=== PATIENT | male | born 1935 | race Asian ===

== ENCOUNTER → 2017-01-17 | Outpatient (CLI) | payer OTHER | END | disposition home or self-care (01) | LOC: RD 10:39 | DX: M89.9 Disorder of bone, unspecified (principal) ==

== ENCOUNTER → 2017-02-10 | Outpatient (CLI) | payer OTHER | END | disposition home or self-care (01) | LOC: NM 08:56 | DX: Z95.2 Presence of prosthetic heart valve (principal) ==

== ENCOUNTER → 2017-04-15 | Outpatient (CLI) | payer OTHER | END | disposition home or self-care (01) | LOC: RD 10:25 | DX: M25.561 Pain in right knee (principal); M54.16 Radiculopathy, lumbar region ==

== ENCOUNTER 2018-01-11 18:06 | Emergency (ER) | payer OTHER ==
[~2018-01-11] VITALS: Ht 167.6 cm; Wt 89.5 kg
[2018-01-11 19:05] LABS: BASOPHIL % 0.5 % (0-2); PLATELET COUNT 171 x10^3mcL (130-400); RED CELL DISTRIBUTION WIDTH 14.2 % (11.5-14.5)
[2018-01-11 19:30] LABS: CALCIUM 8.3 mg/dL (8.5-10.1); CARBON DIOXIDE 30.3 mmol/L (21-32); CHLORIDE SERUM 95 mmol/L (98-107); CREATININE SERUM 1.1 mg/dL (0.7-1.3); GLUCOSE SERUM 105 mg/dL (74-106); POTASSIUM SERUM 3.5 mmol/L (3.5-5.1); SODIUM SERUM 133 mmol/L (136-145)
[2018-01-11 19:35] LABS: ALBUMIN 3.9 g/dL (3.4-5.0); ALKALINE PHOSPHATASE 68 U/L (46-116); ALT/SGPT 33 U/L (16-63); AST/SGOT 21 U/L (15-37); TOTAL PROTEIN, SERUM 7.3 g/dL (6.4-8.2)
[2018-01-11 21:05] VITALS: BP 149/98
== END 2018-01-11 21:05 | disposition home or self-care (01) ==
LOC: ED 18:06
PROVIDERS: Emergency Medicine
DX: S01.21XA Laceration without foreign body of nose, initial encounter (principal); S80.02XA Contusion of left knee, initial encounter; H92.02 Otalgia, left ear; I10 Essential (primary) hypertension; Z86.79 Personal history of other diseases of the circulatory system; Z79.01 Long term (current) use of anticoagulants; W01.0XXA Fall on same level from slipping, tripping and stumbling without subsequent striking against object, initial encounter; Y93.89 Activity, other specified; Y92.89 Other specified places as the place of occurrence of the external cause; Y99.8 Other external cause status
CPT/HCPCS: 36415

== ENCOUNTER 2018-01-24 12:29 | Inpatient (IN) | payer OTHER ==
[~2018-01-24] VITALS: Ht 170.2 cm; Wt 86.4 kg
[2018-01-24 14:19] LABS: BASOPHIL % 0.4 % (0-2); PLATELET COUNT 216 x10^3mcL (130-400)
[2018-01-24 14:20] LABS: RED CELL DISTRIBUTION WIDTH 14.6 % (11.5-14.5)
[2018-01-24 14:25] LABS: CALCIUM 8.4 mg/dL (8.5-10.1); CARBON DIOXIDE 30.8 mmol/L (21-32); CHLORIDE SERUM 98 mmol/L (98-107); CREATININE SERUM 1.1 mg/dL (0.7-1.3); GLUCOSE SERUM 92 mg/dL (74-106); POTASSIUM SERUM 3.9 mmol/L (3.5-5.1); SODIUM SERUM 135 mmol/L (136-145)
[2018-01-24] MEDS ORDERED: CORE25 PO (15:14)
[2018-01-24] MEDS ORDERED: ECOTRIN81 M2 PO (15:15)
[2018-01-24] MEDS ORDERED: ENALAPRIL MALEA10 MG PO (15:15)
[2018-01-24] MEDS ORDERED: K10 PO (15:16)
[2018-01-24] MEDS ORDERED: FELODIPINE10 MG PO (15:16)
[2018-01-24] MEDS ORDERED: SIMVASTATIN20 M1 PO (15:21)
[2018-01-24] MEDS ORDERED: COUMADIN3 MG PO (15:22)
[2018-01-24 15:47] LABS: T3 TOTAL 0.96 ng/mL
[2018-01-24 16:37] VITALS: BP 148/83
[2018-01-24 16:55] LABS: MAGNESIUM 2.2 mg/dL (1.8-2.4); PHOSPHOROUS 2.7 mg/dL (2.5-4.9)
[2018-01-24 17:04] LABS: CHOLESTEROL/HDL RATIO 2.5
[2018-01-24 17:11] LABS: FREE T4 1.45 ng/dL (0.76-1.46); FREE THYROXINE INDEX 3.7 ug/dL (1.4-4.5); T4(THYROXINE) 10.4 ug/dL (4.7-13.3)
[2018-01-24 20:57] LABS: UA SPECIFIC GRAVITY 1.015 (1.005-1.035); microscopic required? YES; urine erythrocyte 2+ (NEGATIVE)
[2018-01-24 21:38] VITALS: BP 155/78
[2018-01-24 22:51] LABS: AMPHETAMINE QUAL UR NONE DETECTED (NEG <=1000)
[2018-01-25 00:51] LABS: BASOPHIL % 0.6 % (0-2); PLATELET COUNT 236 x10^3mcL (130-400); RED CELL DISTRIBUTION WIDTH 14.5 % (11.5-14.5)
[2018-01-25 05:41] VITALS: BP 124/70
[2018-01-25 06:44] LABS: BASOPHIL % 0.5 % (0-2); PLATELET COUNT 205 x10^3mcL (130-400); RED CELL DISTRIBUTION WIDTH 14.5 % (11.5-14.5)
[2018-01-25 06:58] LABS: CARBON DIOXIDE 28.3 mmol/L (21-32); CHLORIDE SERUM 101 mmol/L (98-107); CREATININE SERUM 0.8 mg/dL (0.7-1.3); GLUCOSE SERUM 84 mg/dL (74-106); POTASSIUM SERUM 3.6 mmol/L (3.5-5.1); SODIUM SERUM 137 mmol/L (136-145)
[2018-01-25 09:03] VITALS: BP 162/86
[2018-01-25 10:39] LABS: ALKALINE PHOSPHATASE 77 U/L (46-116); ALT/SGPT 15 U/L (16-63); AST/SGOT 17 U/L (15-37)
[2018-01-25 12:04] VITALS: BP 135/75
[2018-01-25 17:23] VITALS: BP 158/78
[2018-01-25 22:13] VITALS: BP 132/75
[2018-01-26 05:15] VITALS: BP 137/66
[2018-01-26 06:11] LABS: BASOPHIL % 0.6 % (0-2); PLATELET COUNT 214 x10^3mcL (130-400)
[2018-01-26 06:24] LABS: CALCIUM 8.2 mg/dL (8.5-10.1); CARBON DIOXIDE 28.6 mmol/L (21-32); CHLORIDE SERUM 106 mmol/L (98-107); CREATININE SERUM 1.2 mg/dL (0.7-1.3); GLUCOSE SERUM 88 mg/dL (74-106); POTASSIUM SERUM 3.6 mmol/L (3.5-5.1); SODIUM SERUM 139 mmol/L (136-145)
[2018-01-26 06:46] LABS: RED CELL DISTRIBUTION WIDTH 14.6 % (11.5-14.5)
[2018-01-26 08:10] VITALS: BP 102/72
[2018-01-26 08:57] VITALS: BP 160/84
[2018-01-26 13:39] VITALS: BP 131/71
[2018-01-26 16:11] VITALS: BP 127/74
[2018-01-26 21:01] VITALS: BP 142/75
[2018-01-27 06:06] VITALS: BP 146/65
[2018-01-27 06:39] LABS: CALCIUM 8.3 mg/dL (8.5-10.1); CHLORIDE SERUM 106 mmol/L (98-107); CREATININE SERUM 1.2 mg/dL (0.7-1.3); GLUCOSE SERUM 90 mg/dL (74-106); POTASSIUM SERUM 3.8 mmol/L (3.5-5.1); SODIUM SERUM 142 mmol/L (136-145)
[2018-01-27 06:40] LABS: BASOPHIL % 0.3 % (0-2); PLATELET COUNT 220 x10^3mcL (130-400)
[2018-01-27 07:01] LABS: RED CELL DISTRIBUTION WIDTH 15.2 % (11.5-14.5)
[2018-01-27 09:15] VITALS: BP 136/78
[2018-01-27] MEDS ORDERED: PRI20 PO (13:36)
[2018-01-27] MEDS ORDERED: COUMADIN5 MG PO (13:37)
[2018-01-27 14:09] VITALS: BP 146/72
[2018-01-27 16:05] VITALS: BP 146/72
== END 2018-01-27 17:10 | disposition home or self-care (01) | DRG 394 ==
LOC: ED 12:29 → DU 14:28
PROVIDERS: Emergency Medicine; Family Medicine; Internal Medicine Gastroenterology
PROC: 0DB68ZX Excision of Stomach, Via Natural or Artificial Opening Endoscopic, Diagnostic (ICD-10-PCS; principal; 2018-01-26 09:00)
PROC: 0DB48ZZ Excision of Esophagogastric Junction, Via Natural or Artificial Opening Endoscopic (ICD-10-PCS; 2018-01-26 09:00)
PROC: 0DBF8ZZ Excision of Right Large Intestine, Via Natural or Artificial Opening Endoscopic (ICD-10-PCS; 2018-01-26 09:00)
DX: K64.8 Other hemorrhoids (principal); Q61.3 Polycystic kidney, unspecified; I10 Essential (primary) hypertension; R79.1 Abnormal coagulation profile; T45.515A Adverse effect of anticoagulants, initial encounter; K57.30 Diverticulosis of large intestine without perforation or abscess without bleeding; K63.5 Polyp of colon; K29.70 Gastritis, unspecified, without bleeding; K31.7 Polyp of stomach and duodenum; I25.10 Atherosclerotic heart disease of native coronary artery without angina pectoris; D64.9 Anemia, unspecified; K76.89 Other specified diseases of liver; N40.0 Benign prostatic hyperplasia without lower urinary tract symptoms; Z68.32 Body mass index [BMI] 32.0-32.9, adult; Z95.1 Presence of aortocoronary bypass graft; Z95.2 Presence of prosthetic heart valve; Z79.01 Long term (current) use of anticoagulants; Y92.89 Other specified places as the place of occurrence of the external cause
CPT/HCPCS: 43235; 45378; 83880; 84439; J0290; J1200; J1610; J1644; J2250; J2310; J3010; J3490; J7030; J7040; Q0092; Q9967